=== PATIENT | female | born 1995 | race African-American/Black ===

== ENCOUNTER 2020-07-11 11:37 | Emergency (ER) | payer MEDICAID ==
[~2020-07-11] VITALS: Ht 167.6 cm; Wt 81.6 kg
[2020-07-11 12:40] VITALS: BP 120/78
== END 2020-07-11 12:40 | disposition home or self-care (01) ==
LOC: ER 11:37
DX: R50.9 Fever, unspecified (principal); R05 Cough; Z20.828 Contact with and (suspected) exposure to other viral communicable diseases
CPT/HCPCS: 87635; 99283; C9803; 99281

== ENCOUNTER → 2020-08-12 | Outpatient (CLI) | payer MEDICAID | END | disposition home or self-care (01) | LOC: LAB 07:48 | PROVIDERS: ATTEND Surgery | DX: Z01.812 Encounter for preprocedural laboratory examination (principal); Z20.828 Contact with and (suspected) exposure to other viral communicable diseases | CPT/HCPCS: 87426 ==

== ENCOUNTER → 2020-08-19 | Outpatient (CLI) | payer MEDICAID | END | disposition home or self-care (01) | LOC: LAB 07:32 | DX: Z20.828 Contact with and (suspected) exposure to other viral communicable diseases (principal) | CPT/HCPCS: 87426 ==

== ENCOUNTER 2020-10-07 11:52 | Emergency (ER) | payer MEDICAID ==
[~2020-10-07] VITALS: Ht 167.6 cm; Wt 91.3 kg
[2020-10-07] MEDS ORDERED: ALBUTEROL (0.083%) 2.5MG/3ML NEB HHN STA ×2 (13:01→17:41)
[2020-10-07] MEDS ORDERED: IPRATROPIUM BROMIDE (0.02%) 0.5MG/2.5ML NEB HHN STA (13:01)
[2020-10-07] MEDS ORDERED: ALBU90AE IH (16:58)
[2020-10-07] MEDS ORDERED: METHYLPREDNISOLONE SOD SUCC 125 MG/2 ML VIAL IV ONE (17:00)
[2020-10-07 18:27] VITALS: BP 119/71
== END 2020-10-07 18:40 | disposition home or self-care (01) ==
LOC: ER 12:01
DX: O99.511 Diseases of the respiratory system complicating pregnancy, first trimester (principal); J45.901 Unspecified asthma with (acute) exacerbation; Z20.822 Contact with and (suspected) exposure to COVID-19; Z3A.01 Less than 8 weeks gestation of pregnancy
CPT/HCPCS: 36415; 71045; 76801; 76817; 81025; 84702; 93005; 94640; 96374; 99285; C9803; J2930; U0003; Z7610